=== PATIENT | female | born 1975 | race Hispanic/Latino ===

== ENCOUNTER 2021-09-07 16:55 | Inpatient (IN) | payer OTHER ==
[~2021-09-07] VITALS: Ht 147.3 cm; Wt 71.5 kg
[2021-09-07] MEDS ORDERED: IPRATROPIUM/ALBUTEROL SULFATE 3 ML SOLUTION IH ONE (18:00)
[2021-09-07] MEDS ORDERED: SOLU-MEDROL 125MG VIAL IVP ONE (18:00)
[2021-09-07 18:22] LABS: BASOPHILS % (AUTO) 0.4 % (0.0-5.0); HEMATOCRIT 37.6 % (36-48); LYMPHOCYTES % (AUTO) 9.5 % (21.0-51.0); MEAN CORPUSCULAR HEMOGLOBIN 24.9 pg (27.0-33.0); MEAN CORPUSCULAR HGB CONC 31.4 g/dL (32.0-36.0); MEAN CORPUSCULAR VOLUME 79.3 fL (79-99); MONOCYTES % (AUTO) 8.5 % (3.0-13.0); PLATELET COUNT (AUTO) 297 K/uL (130-400); RED BLOOD CELL COUNT(AUTO) 4.74 MIL/uL (4.00-5.50); RED CELL DISTRIBUTION WIDTH 15.1 % (11.0-15.5); WHITE BLOOD COUNT (AUTO) 25.6 K/uL (4.8-10.8)
[2021-09-07 18:30] LABS: CREATININE 0.9 mg/dL (0.5-1.5)
[2021-09-07 18:35] LABS: ALBUMIN 2.8 g/dL (3.5-5.0); BILIRUBIN,TOTAL 0.7 mg/dL (0.2-1.0); TOTAL PROTEIN, SERUM 8.5 g/dL (6.0-8.3)
[2021-09-07 18:51] LABS: INR 0.95 (0.85-1.15); PROTHROMBIN TIME 10.4 SEC (9.6-11.6)
[2021-09-07 18:52] LABS: PARTIAL THROMBOPLASTIN TIME 27.1 SEC (26.3-35.5)
[2021-09-07] MEDS ORDERED: 0.9%NACL 1000ML 1,000 ML IV ONE (19:00)
[2021-09-07] MEDS ORDERED: POTASSIUM BICARB/CIT AC 25 MEQ TABLET.EFF PO ONE (19:00)
[2021-09-07] MEDS ORDERED: CEFTRIAXONE 1G VIAL IVP ONE (19:00)
[2021-09-07] MEDS: AZITHROMYCIN 500MG+NS 250ML IVPB SCH (20:25)
[2021-09-07] MEDS ORDERED: GUAIFENESIN-CODEINE 5 ML SYRUP PO ONE (21:00)
[2021-09-07] MEDS ORDERED: ONDANSETRON 4MG INJ IV PRN (21:30)
[2021-09-07] MEDS ORDERED: LACTULOSE 20 GM/30 ML UDCUP PO PRN (21:30)
[2021-09-07] MEDS: CEFTRIAXONE 1G VIAL IV SCH (21:30)
[2021-09-07] MEDS ORDERED: ACETAMINOPHEN 325 MG TAB PO PRN ×2 (21:30)
[2021-09-07] MEDS ORDERED: AZITHROMYCIN 500MG+NS 250ML IVPB SCH (21:30)
[2021-09-07] MEDS: IPRATROPIUM/ALBUTEROL SULFATE 3 ML SOLUTION IH PRN (23:06)
[2021-09-07 23:20] VITALS: BP 147/86
[2021-09-07 23:50] LABS: APPEARANCE,URINE Clear (CLEAR); BILIRUBIN,URINE Negative (NEGATIVE); COLOR,URINE Yellow (YELLOW); GLUCOSE, URINE (UA) Negative (NEGATIVE); KETONES,URINE >=80 mg/dL (NEGATIVE); LEUKOCYTE ESTERASE ,URINE Negative (NEGATIVE); NITRATE,URINE Negative (NEGATIVE); OCCULT BLOOD,URINE Trace (NEGATIVE); PH,URINE 6.5 (5.0-8.0); PROTEIN,URINE POS 1+ mg/dL (NEGATIVE)
[2021-09-07 23:52] LABS: HCG,QUAL RESULT NEGATIVE (NEGATIVE)
[2021-09-07 23:58] LABS: AMPHET/METH SCREEN,URINE NEGATIVE (NEGATIVE); BARBITURATE SCREEN, URINE NEGATIVE (NEGATIVE); BENZODIAZEPINES SCREEN,URINE NEGATIVE (NEGATIVE); CANNABINOID SCREEN,URINE NEGATIVE (NEGATIVE); COCAINE SCREEN,URINE NEGATIVE (NEGATIVE); OPIATE SCREEN,URINE POSITIVE (NEGATIVE); PHENCYCLIDINE SCREEN,URINE NEGATIVE (NEGATIVE)
[2021-09-08 00:01] LABS: BACTERIA,URINE None Seen /HPF (None Seen); RBC,URINE None Seen /HPF (0-1); WBC,URINE None Seen /HPF (0-1)
[2021-09-08 04:00] VITALS: BP 127/87
[2021-09-08 04:43] LABS: BASOPHILS % (AUTO) 0.3 % (0.0-5.0); EOSINOPHILS % (AUTO) 0.1 % (0.0-8.0); HEMATOCRIT 35.7 % (36-48); MEAN CORPUSCULAR HEMOGLOBIN 24.4 pg (27.0-33.0); MEAN CORPUSCULAR HGB CONC 30.8 g/dL (32.0-36.0); MEAN CORPUSCULAR VOLUME 79.3 fL (79-99); MONOCYTES % (AUTO) 3.8 % (3.0-13.0); NEUTROPHILS % (AUTO) 86.7 % (40.0-77.0); PLATELET COUNT (AUTO) 256 K/uL (130-400); RED CELL DISTRIBUTION WIDTH 15.3 % (11.0-15.5); WHITE BLOOD COUNT (AUTO) 17.5 K/uL (4.8-10.8)
[2021-09-08 04:58] LABS: CREATININE 0.7 mg/dL (0.5-1.5); POTASSIUM 3.8 mmol/L (3.5-5.1)
[2021-09-08] MEDS: IPRATROPIUM/ALBUTEROL SULFATE 3 ML SOLUTION IH PRN (06:15)
[2021-09-08 08:00] VITALS: BP 133/94
[2021-09-08] MEDS: FAMOTIDINE 20MG TAB PO SCH (08:44)
[2021-09-08 12:00] VITALS: BP 145/101
[2021-09-08] MEDS ORDERED: HYDROCHLOROTHIAZIDE 25 MG TABLET ONE (13:08)
[2021-09-08] MEDS ORDERED: ENALAPRIL MALEATE 10 MG TABLET ONE (13:11)
[2021-09-08 16:00] VITALS: BP 159/102
[2021-09-08] MEDS: ENALAPRIL MALEATE 10 MG TABLET PO SCH (16:38)
[2021-09-08] MEDS: HYDROCHLOROTHIAZIDE 25 MG TABLET PO SCH (16:40)
[2021-09-08] MEDS ORDERED: NIFEDIPINE 10 MG CAP PO ONE (17:30)
[2021-09-08] MEDS ORDERED: LABETALOL 20MG VIAL IV PRN (17:30)
[2021-09-08] MEDS ORDERED: 0.9% NACL 250ML 250 ML ONE (18:29)
[2021-09-08] MEDS: AZITHROMYCIN 500MG+NS 250ML IVPB SCH (19:16)
[2021-09-08 20:32] VITALS: BP 120/74
[2021-09-08] MEDS: NIFEDIPINE 10 MG CAP PO SCH (22:26)
[2021-09-08] MEDS: CEFTRIAXONE 1G VIAL IV SCH (22:36)
[2021-09-08 23:27] VITALS: BP 99/63
[2021-09-09 03:53] VITALS: BP 126/78
[2021-09-09 04:48] LABS: HEMATOCRIT 35.7 % (36-48); MEAN CORPUSCULAR HEMOGLOBIN 24.9 pg (27.0-33.0); MEAN CORPUSCULAR HGB CONC 31.7 g/dL (32.0-36.0); MEAN CORPUSCULAR VOLUME 78.6 fL (79-99); RED BLOOD CELL COUNT(AUTO) 4.54 MIL/uL (4.00-5.50); RED CELL DISTRIBUTION WIDTH 15.2 % (11.0-15.5); WHITE BLOOD COUNT (AUTO) 18.9 K/uL (4.8-10.8)
[2021-09-09 05:00] LABS: CREATININE 0.8 mg/dL (0.5-1.5); POTASSIUM 3.3 mmol/L (3.5-5.1)
[2021-09-09 08:00] VITALS: BP 132/77
[2021-09-09] MEDS ORDERED: ENALAPRIL MALEATE 10 MG TABLET PO SCH (09:00)
[2021-09-09] MEDS ORDERED: HYDROCHLOROTHIAZIDE 25 MG TABLET PO SCH (09:00)
[2021-09-09] MEDS: ENALAPRIL MALEATE 10 MG TABLET PO SCH (09:23)
[2021-09-09] MEDS: HYDROCHLOROTHIAZIDE 25 MG TABLET PO SCH (09:23)
[2021-09-09] MEDS: FAMOTIDINE 20MG TAB PO SCH (09:23)
[2021-09-09] MEDS: NIFEDIPINE 10 MG CAP PO SCH ×2 (09:23→14:26)
[2021-09-09 12:00] VITALS: BP 110/73
[2021-09-09] MEDS ORDERED: KCL 20 MEQ ERTAB PO ONE (14:00)
[2021-09-09 16:00] VITALS: BP 113/70
[2021-09-09] MEDS ORDERED: GUAIFENESIN-CODEINE 5 ML SYRUP PO PRN (17:00)
[2021-09-09] MEDS ORDERED: BENZONATATE 100 MG CAPSULE PO PRN (17:00)
[2021-09-09 20:19] VITALS: BP 125/82
[2021-09-09] MEDS ORDERED: 0.9% NACL 250ML 250 ML ONE (20:36)
[2021-09-09] MEDS: CEFTRIAXONE 1G VIAL IV SCH (20:41)
[2021-09-09] MEDS: AZITHROMYCIN 500MG+NS 250ML IVPB SCH (20:41)
[2021-09-09 23:47] VITALS: BP 128/84
[2021-09-10 04:12] VITALS: BP 139/87
[2021-09-10 05:15] LABS: BASOPHILS % (AUTO) 0.7 % (0.0-5.0); EOSINOPHILS % (AUTO) 1.6 % (0.0-8.0); HEMATOCRIT 36.2 % (36-48); LYMPHOCYTES % (AUTO) 36.3 % (21.0-51.0); MEAN CORPUSCULAR HEMOGLOBIN 24.8 pg (27.0-33.0); MEAN CORPUSCULAR HGB CONC 31.2 g/dL (32.0-36.0); MEAN CORPUSCULAR VOLUME 79.4 fL (79-99); MONOCYTES % (AUTO) 8.8 % (3.0-13.0); NEUTROPHILS % (AUTO) 47.4 % (40.0-77.0); PLATELET COUNT (AUTO) 352 K/uL (130-400); RED BLOOD CELL COUNT(AUTO) 4.56 MIL/uL (4.00-5.50); RED CELL DISTRIBUTION WIDTH 15.3 % (11.0-15.5); WHITE BLOOD COUNT (AUTO) 12.2 K/uL (4.8-10.8)
[2021-09-10 07:06] LABS: ALBUMIN 2.4 g/dL (3.5-5.0); BILIRUBIN,TOTAL 0.1 mg/dL (0.2-1.0); CREATININE 0.8 mg/dL (0.5-1.5); POTASSIUM 3.5 mmol/L (3.5-5.1); TOTAL PROTEIN, SERUM 7.2 g/dL (6.0-8.3)
[2021-09-10] MEDS ORDERED: SODIUM CHLORIDE 7% INHALATION 4 ML VIAL.NEB IH ONE (07:39)
[2021-09-10 08:00] VITALS: BP 141/93
[2021-09-10] MEDS ORDERED: LISINOPRIL 10 MG TABLET PO SCH (09:00)
[2021-09-10] MEDS ORDERED: HYDROCHLOROTHIAZIDE 25 MG TABLET PO SCH (09:00)
[2021-09-10] MEDS ORDERED: NIFEDIPINE ER 30 MG TAB PO SCH (09:00)
[2021-09-10] MEDS: FAMOTIDINE 20MG TAB PO SCH (10:25)
[2021-09-10 12:00] VITALS: BP 150/97
[2021-09-10] MEDS ORDERED: AMOX1TAB16 PO (13:27)
[2021-09-10] MEDS ORDERED: LISI10TA24 PO (15:30)
[2021-09-10] MEDS ORDERED: HYDR25TA PO (15:30)
[2021-09-10] MEDS ORDERED: NIFE-40 PO (15:30)
[2021-09-10 16:00] VITALS: BP 139/96
== END 2021-09-10 18:00 | disposition home or self-care (01) | DRG 195 ==
LOC: EDH 16:55 → OBSVTOIN 16:56 → EDHIP 16:56 → 3CH 23:20
PROVIDERS: ADMIT Internal Medicine; ATTEND Internal Medicine
DX: J18.9 Pneumonia, unspecified organism (principal); E87.6 Hypokalemia; E66.9 Obesity, unspecified; Z68.32 Body mass index [BMI] 32.0-32.9, adult; Z20.822 Contact with and (suspected) exposure to COVID-19; Z79.899 Other long term (current) drug therapy; I10 Essential (primary) hypertension; F14.90 Cocaine use, unspecified, uncomplicated; D72.829 Elevated white blood cell count, unspecified
CPT/HCPCS: 36415; 71045; 80048; 80053; 80305; 81001; 81025; 82550; 83605; 84484; 85025; 85027; 85610; 85730; 86738; 87040; 87071; 87088; 87205; 87449; 87635; 87804; 87880; 94640; 94664; C9803; G0378; J0456; J0696; J2930; J7030; J7050